=== PATIENT | female | born 1940 | race African-American/Black ===

== ENCOUNTER 2025-03-16 12:54 | Outpatient (CLI) | payer MEDICARE, OTHER, SELFPAY ==
--- NOTE | ~2025-03-16 | XR_ITS ---
EXAM/ PROCEDURE: XR foot LT min 3V - 03/16/2025 13:29 CDT HISTORY: 85 years old Female with hallux rigidus, left foot pain COMPARISON: None available TECHNIQUE: Three view(s) FINDINGS/ IMPRESSION: There are no fractures or dislocations.Joint space narrowing, subchondral sclerosis, subchondral cyst formation and osteophyte formation, compatible with mild osteoarthritis. Moderate hallux valgus defo rmity and bunion formation. Reviewed, dictated and finalized at location A.
[2025-03-16 14:13] LABS: Hematocrit 37.8 % (37.0-47.0); Hemoglobin 11.8 g/dL (12.0-15.0); Mean Corpuscular HGB Conc 31.2 g/dl (32-36); Mean Corpuscular Hemoglobin 22.4 pg (26-34); Mean Corpuscular Volume 71.9 fl (80-100); Mean Platelet Volume 11.4 fl (7.4-10.4); Platelet Count Result 278 k/mm3 (150-375); Red Blood Count 5.26 M/mm3 (4.2-5.4); Red Cell Distribution Width 15.4 % (11.5-14.5); White Blood Count 4.7 K/mm3 (4.5-10.0)
[2025-03-16 15:04] LABS: Erythrocyte Sedimentation Rate 12 mm/hr (0-20)
[2025-03-16 15:33] LABS: Uric Acid 2.9 mg/dL (2.5-7.5)
== END 2025-03-16 12:55 | disposition home or self-care (01) ==
DX: M20.22 Hallux rigidus, left foot (principal); M10.9 Gout, unspecified
CPT/HCPCS: 36415; 73630; 84550; 85027; 85652